=== PATIENT | male | born 1975 | race Caucasian/White ===

== ENCOUNTER 2017-02-17 02:07 | Emergency (ER) | payer SELFPAY ==
[~2017-02-17] VITALS: Ht 180.3 cm; Wt 73.7 kg
[2017-02-17] MEDS ORDERED: MEDROL DOSEPAK4 MG PO (02:52)
[2017-02-17] MEDS ORDERED: SINGULAIR10 MG PO (02:53)
[2017-02-17 02:57] VITALS: BP 133/93
== END 2017-02-17 02:58 | disposition home or self-care (01) ==
LOC: EME 02:07
DX: J45.901 Unspecified asthma with (acute) exacerbation (principal)
CPT/HCPCS: 94640; 99281; 99284; J7512